=== PATIENT | female | born 1985 | race Caucasian/White ===

== ENCOUNTER 2017-02-08 05:12 | Emergency (ER) | payer OTHER ==
[~2017-02-08] VITALS: Ht 162.6 cm; Wt 51.0 kg
[2017-02-08] MEDS ORDERED: ONDANSETRON 4 MG INJ IV STA (05:13)
[2017-02-08] MEDS ORDERED: SOD CHLORIDE 0.9% 1,000 ML IV STA (05:13)
[2017-02-08] MEDS ORDERED: FAMOTIDINE 20 MG INJ IV STA (05:13)
[2017-02-08 05:15] VITALS: Ht 162.6 cm; Wt 51.0 kg
--- NOTE | 2017-02-08 05:45 | ERD ---
ER Documentation Chief Complaint Date/Time DATE: 02/08/17 TIME: 05:42 Chief Complaint bib ra from home for heroin overdose, given 4 mg narcan HPI This is a 31-year-old female who presents to the emergency room with EMS for evaluation of heroin overdose. According to EMS they arrived at an unknown person's home in this patient was found unresponsive with shallow respirations. A total of 4 mg of Narcan was given to this patient with good response. The patient denies taking any other drugs tonight. EMS state that this patient does have a backpack with heroin, and multiple syringes in it. ROS All systems reviewed and are negative except as per history of present illness. Allergies Allergies: Coded Allergies: No Known Allergy (Unverified , 02/08/17) PMhx/Soc Medical and Surgical Hx: pt denies Medical Hx, pt denies Surgical Hx Hx Psychiatric Problems: No Hx Miscellaneous Medical Probl: No Hx Alcohol Use: No Hx Substance Use: Yes Hx Tobacco Use: No Smoking Status: Never smoker Physical Exam Vitals Vital Signs Date Time Temp Pulse Resp B/P Pulse Ox O2 Delivery O2 Flow Rate FiO2 02/08/17 05:18 98.1 97 21 102/67 94 Room Air 02/08/17 05:15 97.4 95 16 107/65 100 Physical Exam Const: Disheveled appearance Head: Atraumatic Eyes: Normal Conjunctiva ENT: Normal External Ears, Nose and Mouth. Neck: Full range of motion..~ No meningismus. Resp: Clear to auscultation bilaterally Cardio: Regular rate and rhythm, no murmurs Abd: Soft, non tender, non distended. Normal bowel sounds Skin: Piloerection, no petechiae or rashes Back: No midline or flank tenderness Ext: No cyanosis, or edema Neur: Awake and alert Psych: Normal Mood and Affect Results 24 hrs Current Medications Medications (Trade) Dose Ordered Sig/Erica Route PRN Reason Start Time Stop Time Status Last Admin Dose Admin Sodium Chloride (NS) 1,000 ml @ 1,000 mls/hr Q1H STAT IV 02/08/17 05:13 02/08/17 06:12 02/08/17 05:31 Ondansetron HCl (Zofran Inj) 4 mg ONCE STAT IV 02/08/17 05:13 02/08/17 05:15 DC 02/08/17 05:31 Famotidine (Pepcid Iv) 20 mg ONCE STAT IV 02/08/17 05:13 02/08/17 05:15 DC 02/08/17 05:33 Procedures/MDM This 31-year-old female presents to the emergency room for evaluation of a heroin overdose. The patient was given a total of 4 mg of Narcan. The patient did have a good response to Narcan. When I evaluated this patient she has spontaneous respirations and no signs of impending respiratory failure. The patient did have dry mucous membranes and piloerection. Patient was given 1 L of fluids and 4 mg of Zofran in the emergency room. Chest x-ray was obtained which does not show any signs of pulmonary edema at this time. This patient will be observed for 90 minutes in the emergency room and will be discharged that she does not require any further dosage of Narcan. The patient has not required supplemental oxygen at this time, and is arousable and is speaking in full sentences Chest X-ray 1V Interpreted by me: Soft Tissue: No acute abnormalities Bones: No acute abnormalities Mediastinum/Cardiac Silhouette/Lungs: Left perihilar vascular congestion and cephalization of vessels Departure Diagnosis: Primary Impression: Heroin overdose Condition: Stable EARNEST WHITE DO Feb 08, 2017 05:45
--- NOTE | 2017-02-08 05:47 | RADRPT ---
PROCEDURE: CHEST - 1 VIEW CLINICAL INDICATION: 31-year-old female with altered mental status. TECHNIQUE: A single frontal AP portable view of the chest was performed. The images were reviewed on a PACS workstation. COMPARISON: None. FINDINGS: The cardiomediastinal silhouette is prominent but within normal limits. There is mild elevation rig ht hemidiaphragm. There is diffuse left perihilar increased interstitial lung markings. There is a questionable left mid/lower lung zone infiltrate. The pulmonary vascularity is within normal limits . There is no evidence for pneumothorax or pneumomediastinum. The osseous structures are intact. IMPRESSION: Diffuse increased left perihilar central interstitial lung markings with questionable left mid/lower lung zone infiltrate. .Jose Hwang MD, Date Time Electronically viewed and signed by .Jose Hwang MD, on 02/08/2017 05:47 .M/
[2017-02-08 06:26] VITALS: BP 129/87; PULSE 89; RESP 20; TEMP 98.3
== END 2017-02-08 07:09 | disposition home or self-care (01) ==
LOC: E/R 05:12
DX: T40.1X1A Poisoning by heroin, accidental (unintentional), initial encounter (principal); R40.2142 Coma scale, eyes open, spontaneous, at arrival to emergency department; R40.2242 Coma scale, best verbal response, confused conversation, at arrival to emergency department; R40.2362 Coma scale, best motor response, obeys commands, at arrival to emergency department
CPT/HCPCS: 71010; 93005; 96374; 96375; J2405; J7030; Z7502; Z7610